=== PATIENT | male | born 1940 ===

== ENCOUNTER → 2020-12-18 | Outpatient (CLI) | payer MEDICARE ==
[~2020-12-18] MED LIST: Magnevist 469MG/ML 20 ML VIAL ONE
== END ==
LOC: MRI 09:07
PROVIDERS: ATTEND Internal Medicine Hematology & Oncology
DX: C64.2 Malignant neoplasm of left kidney, except renal pelvis (principal); R41.3 Other amnesia; I67.82 Cerebral ischemia; W01.0XXA Fall on same level from slipping, tripping and stumbling without subsequent striking against object, initial encounter
CPT/HCPCS: 70553; A9579